=== PATIENT | male | born 1970 ===

== ENCOUNTER 2017-04-27 18:58 | Emergency (ER) | payer MEDICAID, OTHER ==
[2017-04-27 19:05] VITALS: PULSE 105; RESP 16; TEMP 98; O2SAT 98
--- NOTE | 2017-04-27 20:13 | ED PDOC ---
HPI: Chest Pain Time Seen by Provider: 04/27/17 19:20 Chief Complaint (Nursing): Chest Pain Chief Complaint (Provider): Chest Pain History Per: Patient History/Exam Limitations: no limitations Onset/Duration Of Symptoms: Days (x3 months) Current Symptoms Are (Timing): Still Present Additional Complaint(s): 47 year old male with a past medical history of hypertension (untreated), depression, anxiety, and bipolar disorder who presents to the emergency department with a complaint of an intermittent chest pain x3 months located to the left substernal region radiating up to the neck. Reports he had experienced this pain in the past. Admits he has been using crack/cocaine today as well as drinking. Denies cough, shortness of breath, or leg swelling. Patient is currently under police custody. PMD: None Past Medical History Reviewed: Historical Data, Nursing Documentation, Vital Signs Vital Signs: Last Vital Signs Temp 98.0 F 04/27/17 19:02 Pulse 105 H 04/27/17 19:02 Resp 16 04/27/17 19:02 BP Pulse Ox 98 04/27/17 21:25 - Medical History PMH: Anxiety, Bipolar Disorder, Depression, HTN Denies: Diabetes, Hepatitis, HIV, Seizures, Sexually Transmitted Disease - Surgical History Surgical History: No Surg Hx - Family History Family History: States: CAD - Social History Current smoker - smoking cessation education provided: No Alcohol: Social Drugs: Cocaine - Immunization History Hx Tetanus Toxoid Vaccination: No Hx Influenza Vaccination: No Hx Pneumococcal Vaccination: No - Home Medications Home Medications: Ambulatory Orders Medication Instructions Recorded No Known Home Med [No Known Home 05/03/14 Med] - Allergies Allergies/Adverse Reactions: Allergies Allergy/AdvReac Type Severity Reaction Status Date / Time No Known Allergies Allergy Verified 04/27/17 19:02 Review of Systems ROS Statement: Except As Marked, All Systems Reviewed And Found Negative (As per HPI, otherwise negative) Cardiovascular: Positive for: Chest Pain Respiratory: Negative for: Cough, Shortness of Breath Musculoskeletal: Positive for: Neck Pain. Negative for: Other (leg swelling) Physical Exam - Reviewed Nursing Documentation Reviewed: Yes Vital Signs Reviewed: Yes - Physical Exam Appears: Positive for: Non-toxic, No Acute Distress Head Exam: Positive for: ATRAUMATIC, NORMOCEPHALIC Skin: Positive for: Warm, Dry Eye Exam: Positive for: EOMI, PERRL ENT: Positive for: Pharynx Is (clear) Neck: Positive for: Painless ROM, Supple Cardiovascular/Chest: Positive for: Chest Non Tender, Tachycardia (regular rhythm) Respiratory: Positive for: Normal Breath Sounds. Negative for: Wheezing Gastrointestinal/Abdominal: Positive for: Soft. Negative for: Tenderness Back: Positive for: Normal Inspection. Negative for: Decreased ROM Extremity: Positive for: Normal ROM. Negative for: Deformity Lymphatic: Negative for: Adenopathy Neurologic/Psych: Positive for: Alert. Negative for: Motor/Sensory Deficits - Laboratory Results Result Diagrams: 04/27/17 20:16 04/27/17 20:16 - ECG Interpretation Of Abn EKG: Sinus tachycardia at 105 bpm with right bundle branch block. No ST elevations or depressions with non specific changes. O2 Sat by Pulse Oximetry: 98 (RA) Pulse Ox Interpretation: Normal Medical Decision Making Medical Decision Making: Time: 1930 Initial impression: Chest pain and cocaine abuse Initial plan: --EKG --Labs and chemistry ordered --Crisis Evaluation as Ordered --Chest x-ray --Ecotrin 162 mg po --Ativan 1 mg PO --Reevaluation Time: 2015 --Alcohol, Quantitative: <10 --Troponin I: < 0.0120 Evaluate by KATINA Larose. Pt stable for dc psychiatrically Labs and cxr unremarkable. Stable for dc to police custody. Advised to stop doing drugs and visit clinic after police custody for further evaluation. Scribe Attestation: Documented by Susy Orozco, acting as a scribe for Rosio Patel MD. Provider Scribe Attestation: All medical record entries made by the Scribe were at my direction and personally dictated by me. I have reviewed the chart and agree that the record accurately reflects my personal performance of the history, physical exam, medical decision making, and the department course for this patient. I have also personally directed, reviewed, and agree with the discharge instructions and disposition. Disposition - Clinical Impression Clinical Impression: Substance abuse, Chest pain Counseled Patient/Family Regarding: Studies Performed, Diagnosis, Need For Followup - Disposition Referrals: [facility] [Outside] (FOLLOW UP WITH YOUR DOCTOR OR CLINIC IN 2-3 DAYS FOR FURTHER EVALUATION) Disposition: Discharged/Transfer to Law Enforcement Disposition Time: 21:30 Condition: GOOD Additional Instructions: MEDICALLY AND PSYCHIATRICALLY STABLE FOR POLICE CUSTODY Instructions: Cocaine Abuse (ED), Chest Pain (ED)
[2017-04-27 20:24] LABS: BASO # 0.1 K/uL (0.0-0.2); BASO % 0.7 % (0.0-2.0); EOS # 0.1 K/uL (0.0-0.7); EOS % 1.3 % (0.0-4.0); HEMOGLOBIN 14.5 g/dL (12.0-18.0); LYMPH # 1.6 K/uL (1.0-4.3); LYMPH % 18.6 % (20.0-40.0); MEAN CELL VOLUME 88.3 fl (80.0-94.0); MEAN CORPUSCULAR HEMOGLOBIN 30.7 pg (27.0-31.0); MEAN CORPUSCULAR HGB CONC 34.8 g/dL (33.0-37.0); MEAN PLATELET VOLUME 8.5 fl (7.2-11.7); MONO # 0.6 K/uL (0.0-0.8); MONO % 6.3 % (0.0-10.0); NEUT # 6.4 K/uL (1.8-7.0); NEUT % 73.1 % (50.0-75.0); NRBC % 0.1 % (0.0-0.0); RBC 4.72 Mil/uL (4.40-5.90); RED CELL DISTRIBUTION WIDTH 13.7 % (11.5-14.5); WHITE BLOOD COUNT 8.8 K/uL (4.8-10.8)
[2017-04-27 20:49] LABS: ALB/GLOB RATIO 1.5 (1.0-2.1); ALBUMIN 4.2 g/dL (3.5-5.0); ALT/SGPT 36 U/L (21-72); AST/SGOT 31 U/L (17-59); BLOOD UREA NITROGEN 12 mg/dl (9-20); CALCIUM 9.3 mg/dL (8.4-10.2); GFR AFRICAN-AMERICAN > 60; GFR NON-AFRICAN AMERICAN > 60
--- NOTE | 2017-04-28 10:58 | RAD ---
HISTORY: chest pain COMPARISON: Abort 11/15/2013 portable chest x-ray 10:10 p.m. TECHNIQUE: Chest PA and lateral FINDINGS: LUNGS: Shallow lung volumes -central pulmonary vasculature carotid as a result. No consolidation PLEURA: No significant pleural effusion identified. No pneumothorax apparent. CARDIOVASCULAR: Normal. OSSEOUS STRUCTURES: No significant abnormalities. VISUALIZED UPPER ABDOMEN: Normal. OTHER FINDINGS: None. IMPRESSION: No active disease.
--- NOTE | 2017-04-28 10:59 | CARD ---
APPROVED REPORT EKG Measurement Heart [id number] <Conclusion> Sinus tachycardia Right bundle branch block Abnormal ECG
== END 2017-04-27 22:04 ==
LOC: H.ER 18:58
DX: F14.10 Cocaine abuse, uncomplicated (principal); R07.89 Other chest pain; F31.9 Bipolar disorder, unspecified; F41.9 Anxiety disorder, unspecified; I10 Essential (primary) hypertension; Z82.49 Family history of ischemic heart disease and other diseases of the circulatory system
CPT/HCPCS: 71046; 80053; 84484; 85025; 93005; 99282; G0480